=== PATIENT | female | born 1975 | race Caucasian/White ===

== ENCOUNTER 2017-05-31 22:05 | Emergency (ER) | payer SELFPAY ==
[2017-05-31 23:43] VITALS: BP 129/73
--- NOTE | 2017-06-01 04:31 | PN ---
Progress Note - Progress Note Date of Service: 05/31/17 - [facility]BS from waiting room
== END 2017-05-31 23:30 | disposition left against medical advice (07) ==
LOC: ED 22:05
DX: M79.602 Pain in left arm (principal); Z53.21 Procedure and treatment not carried out due to patient leaving prior to being seen by health care provider